=== PATIENT | male | born 1990 | race Two or more races ===

== ENCOUNTER 2021-07-09 07:38 | Emergency (ER) | payer MEDICAID ==
[~2021-07-09] VITALS: Ht 182.9 cm; Wt 78.0 kg
[2021-07-09 08:04] VITALS: BP 135/85
[2021-07-09 08:46] LABS: HEMATOCRIT. 39.4 % (42.0-52.0); HEMOGLOBIN. 13.5 g/dL (14.0-18.0); MEAN CORPUSCULAR HEMOGLOBIN 30.4 pg (28.0-32.0); MEAN CORPUSCULAR VOLUME 88.7 fL (80.0-94.0); MEAN PLATELET VOLUME 9.1 fl (7.4-10.4); PLATELET 124 x1000/uL (130-400); RED BLOOD CELL COUNT 4.45 mill/uL (4.7-6.1); RED CELL DISTRIBUTION WIDTH 12.3 % (11.6-14.6)
[2021-07-09 08:53] LABS: CHLORIDE 102 mEq/L (98-107)
[2021-07-09 09:12] LABS: PLATELET ESTIMATE SLIGHTLY DECREASED
== END 2021-07-09 13:24 | disposition home or self-care (01) ==
LOC: ER 07:59
DX: R07.9 Chest pain, unspecified (principal); R10.9 Unspecified abdominal pain; K76.9 Liver disease, unspecified; Z59.00 Homelessness unspecified
CPT/HCPCS: 36415; 71045; 80048; 80076; 84484; 85025; 85379; 93005; 99285

== ENCOUNTER 2022-01-26 03:50 | Emergency (ER) | payer MEDICAID ==
[~2022-01-26] VITALS: Ht 182.9 cm; Wt 100.0 kg
[2022-01-26 03:55] VITALS: BP 119/89
== END 2022-01-26 07:41 | disposition home or self-care (01) ==
LOC: ER 04:06
DX: Z53.21 Procedure and treatment not carried out due to patient leaving prior to being seen by health care provider (principal)

== ENCOUNTER 2022-09-29 04:09 | Emergency (ER) | payer MEDICAID ==
[~2022-09-29] VITALS: Ht 188 cm; Wt 97.0 kg
[2022-09-29 04:12] VITALS: BP 132/81
== END 2022-09-29 07:32 | disposition left against medical advice (07) ==
LOC: ER 04:09
DX: Z53.21 Procedure and treatment not carried out due to patient leaving prior to being seen by health care provider (principal)
CPT/HCPCS: 99281